=== PATIENT | female | born 1995 | race Caucasian/White ===

== ENCOUNTER 2019-03-26 17:48 | Emergency (ER) | payer SELFPAY ==
[~2019-03-26] VITALS: Ht 165.1 cm; Wt 63.5 kg
[2019-03-26 17:48] VITALS: BP_SYST 137
--- NOTE | 2019-03-26 17:48 | NUR ---
Patient to ER bed 4 to gown for evaluation. Side rails up. Report given to ELIO Schroeder.
--- NOTE | 2019-03-26 17:51 | NUR ---
Patient is awake, alert, and oriented x4. 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 Patient presents with a wound to the lateral right lower leg. Patient reports burning pain 6/10. Patient denies previous medical history.
--- NOTE | 2019-03-26 18:05 | NUR ---
ER Dr. Leon at bedside examining patient.
--- NOTE | 2019-03-26 18:33 | NUR ---
Patient given written and verbal discharge instructions and verbalizes understanding. ER MD discussed with patient the results and treatment provided. Patient in stable condition. ID arm band removed. Rx of bacitracin, tylenol, augmentin given. Patient educated on pain management and to follow up with PMD. Pain Scale 5/10, Dr. Leon is aware. Opportunity for questions provided and answered. Medication side effect fact sheet provided.
[2019-03-26 18:38] VITALS: BP_SYST 128
== END 2019-03-26 18:33 | disposition home or self-care (01) ==
LOC: SED 17:48
DX: S81.831A Puncture wound without foreign body, right lower leg, initial encounter (principal); W54.0XXA Bitten by dog, initial encounter; Y93.89 Activity, other specified; Y92.89 Other specified places as the place of occurrence of the external cause; Y99.8 Other external cause status
CPT/HCPCS: 99283